=== PATIENT | female | born 1930 | race Caucasian/White ===

== ENCOUNTER 2019-07-05 17:05 | Observation (INO) | payer MEDICARE ==
[2019-07-05 18:00] LABS: ABS Monocytes 0.2 10^3/ul (0-0.8); ABS Neutrophils 4.2 10^3/ul (1.5-7.7); Eosinophil % 0.6 %; Hematocrit 47 % (35-47); Hemoglobin 15.7 g/dL (12.0-16.0); Lymphocyte % 18.3 %; Mean Corpuscular HGB Conc 34 g/dL (31-36); Mean Corpuscular Hemoglobin 29 pg (27-31); Mean Corpuscular Volume 87 fL (80-97); Mean Platelet Volume 8.2 fL (7.4-10.4); Platelet Count 227 10^3/uL (150-450); Red Blood Count 5.35 10^6 /uL (3.70-4.87); Red Cell Distribution Width 15 % (10-15); White Blood Count 5.5 10^3/uL (3.5-10.8)
[2019-07-05 18:20] LABS: Albumin 4.5 g/dL (3.2-5.2); Albumin/Globulin Ratio 1.7 (1-3); BUN/Creatinine Ratio 37.3 (8-20); Calcium 9.3 mg/dL (8.6-10.3); EGFR African American 116.7 (>60); EGFR Non-African American 96.4 (>60); Globulin 2.6 g/dL (2-4); Potassium 3.4 mmol/L (3.5-5.0); Total Bilirubin 0.6 mg/dL (0.2-1.0); Total Protein 7.1 g/dL (6.4-8.9)
--- NOTE | 2019-07-05 18:20 | ED ---
Dizziness - HPI Summary HPI Summary: The patient is an 89 y/o F arriving via ambulance to [facility] with cc of dizziness accompanied by mild nausea and vomiting today. She reports that she has been experiencing a fuzzy-head sensation with trouble finding thoughts throughout the day, and she has felt some nausea with scant vomiting. She additionally c/o SOB recently. She denies any headaches, room-spinning dizziness, abd pain, or diarrhea. Symptoms rated 0/10 in severity. No recent falls. No chronic O2 use. PMHx: HTN, breast cancer with left mastectomy. Nonsmoker, no EtOH, no substance use. Medications reviewed. Allergies noted. Home Medications Medication Instructions Recorded Confirmed Type Lisinopril/HCTZ 20/12.5(NF) 1 tab PO DAILY 07/05/19 07/05/19 History [Zestoretic 29/04.5(NF)] Metoprolol Tartrate TAB* 25 mg PO BID 07/05/19 07/05/19 History [Lopressor TAB*] Metoprolol Tartrate TAB* 50 mg PO BID 07/05/19 07/05/19 History [Lopressor TAB*] - History Of Current Complaint Chief Complaint: EDHypertension Stated Complaint: NAUSEA , VOMITING Time Seen by Provider: 07/05/19 17:20 Hx Obtained From: Patient Onset/Duration: Still Present, Gradually Timing: Intermittent Episode Lasting Severity Initially: Mild Severity Currently: Moderate Character: Lightheaded - fuzzy feeling Aggravating Factor(s): Nothing Alleviating Factor(s): Nothing Associated Signs And Symptoms: Positive: Nausea, Vomiting, SOB, Other: - difficulty finding thoughts; Negative: headache. Negative: Diarrhea - Allergies/Home Medications Allergies/Adverse Reactions: Allergies Allergy/AdvReac Type Severity Reaction Status Date / Time No Known Allergies Allergy Verified 07/05/19 17:10 Home Medications: Home Medications Apixaban* [Eliquis*] 5 mg PO BID 07/05/19 [History Confirmed 07/05/19] Lisinopril/HCTZ 20/12.5(NF) [Zestoretic 20/12.5(NF)] 1 tab PO DAILY 07/05/19 [ History Confirmed 07/05/19] Metoprolol Tartrate TAB* [Lopressor TAB*] 25 mg PO BID 07/05/19 [History Confirmed 07/05/19] Metoprolol Tartrate TAB* [Lopressor TAB*] 50 mg PO BID 07/05/19 [History Confirmed 07/05/19] PMH/Surg Hx/FS Hx/Imm Hx Endocrine/Hematology History: Denies: Hx Diabetes Cardiovascular History: Reports: Hx Hypertension Musculoskeletal History: Denies: Hx Osteoporosis - Cancer History Hx Chemotherapy: No Hx Radiation Therapy: No - Surgical History Surgical History: Yes Surgery Procedure, Year, and Place: left mastectomy 2011 Infectious Disease History: No Infectious Disease History: Denies: Traveled Outside the [place] in Last 30 Days - Family History Known Family History: Positive: Hypertension - Social History Alcohol Use: None Hx Substance Use: No Substance Use Type: Reports: None Hx Tobacco Use: No Smoking Status (MU): Never Smoked Tobacco Review of Systems Positive: Shortness Of Breath Positive: Vomiting, Nausea. Negative: Abdominal Pain, Diarrhea Neurological/Mental Status: Other - "fuzzy" dizziness, difficulty finding thoughts Negative: Headache All Other Systems Reviewed And Are Negative: Yes Physical Exam - Summary Physical Exam Summary: Constitutional: Well-developed, Well-nourished, Alert. (-) Distressed Skin: Warm, Dry HENT: Normocephalic; Atraumatic Eyes: Conjunctiva normal Neck: Musculoskeletal ROM normal neck. (-) JVD, (-) Stridor, (-) Nuchal rigidity Cardio: irregularly irregular, Heart sounds normal; Intact distal pulses; Radial pulses are 2+ and symmetric. (-) Murmur Pulmonary/Chest wall: Effort normal. (-) Respiratory distress, (-) Wheezes, (-) Rales Abd: Soft, (-) tenderness, (-) Distension, (-) Guarding, (-) Rebound Musculoskeletal: (-) Edema Lymph: (-) Cervical adenopathy Neuro: Alert, Oriented x3, CN 2-12 grossly intact. No dysmetria. No nystagmus. Strength 5/5 UE and LE. GCS 15, gait deferred Psych: Mood and affect Normal Triage Information Reviewed: Yes Vital Signs On Initial Exam: Initial Vitals Temp Pulse Resp BP Pulse Ox 97.9 F 83 16 198/113 93 07/05/19 17:08 07/05/19 17:08 07/05/19 17:08 07/05/19 17:08 07/05/19 17:08 Vital Signs Reviewed: Yes - Karine Coma Scale Best Eye Response: 4 - Spontaneous Best Motor Response: 6 - Obeys Commands Best Verbal Response: 5 - Oriented Coma Scale Total: 15 Procedures - Sedation Patient Received Moderate/Deep Sedation with Procedure: No Diagnostics - Vital Signs Vital Signs Temp Pulse Resp BP Pulse Ox 07/05/19 17:08 97.9 F 83 16 198/113 93 - Laboratory Lab Results: Lab Results 07/05/19 Range/Units 17:42 WBC 5.5 (3.5-10.8) 10^3/uL RBC 5.35 H (3.70-4.87) 10^6 /uL Hgb 15.7 (12.0-16.0) g/dL Hct 47 (35-47) % MCV 87 (80-97) fL MCH 29 (27-31) pg MCHC 34 (31-36) g/dL RDW 15 (10-15) % Plt Count 227 (150-450) 10^3/uL MPV 8.2 (7.4-10.4) fL Neut % (Auto) 76.6 % Lymph % (Auto) 18.3 % [place] % (Auto) 3.8 % Eos % (Auto) 0.6 % Baso % (Auto) 0.7 % Absolute Neuts (auto) 4.2 (1.5-7.7) 10^3/ul Absolute Lymphs (auto) 1.0 (1.0-4.8) 10^3/ul Absolute Monos (auto) 0.2 (0-0.8) 10^3/ul Absolute Eos (auto) 0.0 (0-0.6) 10^3/ul Absolute Basos (auto) 0.0 (0-0.2) 10^3/ul Absolute Nucleated RBC 0.0 10^3/ul Nucleated RBC % 0.0 Result Diagrams: 07/05/19 17:42 07/05/19 17:42 Lab Statement: Any lab studies that have been ordered have been reviewed, and results considered in the medical decision making process. - Radiology CXR Radiology Interpretation Completed By: Radiologist Summary of Radiographic Findings: Impression: No acute cardiopulmonary disease. ED physician has reviewed this report. - CT Brain CT CT Interpretation Completed By: Radiologist Summary of CT Findings: Impression: No acute intracranial abnormality. ED physician has reviewed this report. - EKG 1726 Cardiac Rate: NL - 96 BPM EKG Rhythm: Atrial Fibrillation Summary of EKG Findings: An EKG at 1726 reveals atrial fibrillation at rate of 96 BPM, T wave inversions in lead III, aVF. No STEMI. ED physician has reviewed and interpreted this EKG. Re-Evaluation - Re-Evaluation First Eval Re-Evaluation Time: 19:25 Comment: Patient's BP still elevated, Labetalol ordered Second Eval Re-Evaluation Time: 21:00 Change: Improved Comment: Patient feeling well, states she is "foggy" Fourth Eval Re-Evaluation Time: 21:35 Change: Worse Comment: Patient unsteady with ambulation, feeling nauseous, plan for admission Dizzy Course/Dx - Course Course Of Treatment: 89 y/o F p/w dizziness, HTN and nausea/vomiting. - abd soft, neuro exam no nystagmus or dysmetria. - Dizziness ddx: Differential diagnosis includes: Cardiac causes - will check EKG, troponin. Electrolyte disturbances - will check CMP. Anemia - will check CBC. Posterior stroke/tia - CT head negative, intermittent symptoms. Vertigo: differential includes Menniere's - no tinnitis, not lasting hours, BPPV - not positional or lasting minutes, labyrinthitis - no h/o infectious symptoms, no tinnitus. - CT head obtained with no acute neurologic process. Labs unremarkable including troponin. EKG A. fib (has hx). patient felt improved, was given food which she tolerated. However upon ambulation patient began to feel worse, had unsteady gait and nausea. Plan for admission for further workup including possible neuro consult. - Diagnoses Provider Diagnoses: Nausea & vomiting, Gait abnormality, Hypertension - Provider Notifications Discussed Care Of Patient With: Barbara Gould - hospitalist Time Discussed With Above Provider: 21:40 Instructed by Provider To: Other - I discussed the patients case with Dr. Gould, who accepts the patient for admission. Discharge ED - Sign-Out/Discharge Documenting (check all that apply): Patient Departure - Patient accepted for admission by Dr. Gould. - Discharge Plan Condition: Stable Disposition: ADMITTED TO [facility] - Billing Disposition and Condition Condition: STABLE Disposition: Admitted to [facility] - Attestation Statements Document Initiated by Scribe: Yes Documenting Scribe: Sadaf Castellanos Provider For Whom Scribe is Documenting (Include Credential): Dr. Kellie Esquivel MD Scribe Attestation: I, Sadaf Castellanos, scribed for Dr. Kellie Esquivel MD on 07/07/19 at 1041. Scribe Documentation Reviewed: Yes Provider Attestation: The documentation as recorded by the scribe, Sadaf Castellanos accurately reflects the service I personally performed and the decisions made by me, Dr. Kellie Esquivel MD Status of Scribe Document: Viewed
[2019-07-05] MEDS ORDERED: Labetalol IV* 5 MG/ML 20 ML VIAL IV PUSH ONE (19:26)
[2019-07-05] MEDS ORDERED: Ondansetron INJ* 2 MG/ML VIAL IV ONE (19:26)
[2019-07-05 21:18] LABS: Urine Appearance Turbid; Urine Bilirubin Negative (Negative); Urine Blood Negative (Negative); Urine Color Yellow; Urine Glucose 1+(50 mg/dL) (Negative); Urine Ketones Negative (Negative); Urine Nitrite Negative (Negative); Urine Protein 1+(30 mg/dL) (Negative); Urine Specific Gravity 1.012 (1.010-1.030); Urine Urobilinogen Negative (Negative)
[2019-07-05 21:30] LABS: Urine Bacteria Absent (Absent); Urine Red Blood Cell Absent (Absent); Urine White Blood Cell Absent (Absent)
[2019-07-05] MEDS ORDERED: Metoprolol Tartrate TAB* 50 mg PO ONE (22:13)
[2019-07-05] MEDS ORDERED: Apixaban* 5 MG TAB PO ONE (22:13)
[2019-07-05] MEDS ORDERED: hydrALAZINE IV* 20 MG/ML VIAL IV SLOW PU PRN (22:23)
[2019-07-05] MEDS ORDERED: Meclizine TAB* 12.5 MG PO ONE (22:32)
--- NOTE | 2019-07-06 00:20 | HP ---
CC: Dr. Stephany Bailey; Dr. Price HISTORY AND PHYSICAL: DATE OF ADMISSION: 07/05/19 TIME OF EVALUATION: 10 p.m. PRIMARY CARE PROVIDER: Dr. Stephany Bailey. ANGER CONTROL COUNSELOR: Dr. Price. CHIEF COMPLAINT: "I am dizzy." HISTORY OF PRESENT ILLNESS: Ms. Hui is an 89-year-old female with a past medical history of hyperte nsion, atrial fibrillation, breast CA, osteoporosis, hyperlipidemia, who presents to the emergency ro om with complaints of dizziness. The patient states that she woke up in the middle of the night to go to the bathroom and she felt jesus t it was difficult to walk. She had to hold on to the antonio to get to the bathroom and this was asso ciated with nausea and vomiting. She states that she was feeling well when she went to bed and woke up in the middle of the night feeling that way. She denies headache, chest pain, palpitations, diarrhea, sick contact, recent respiratory or GI infec tion. She also complains of a "fuzzy feeling" in her "brain." She attributes this to her age. She cannot really pinpoint what that she means by fuzzy brain, but in conversation with her it sounds like she s ometimes has difficulty explaining her thoughts. In the emergency room, the patient was noted to have an elevated blood pressure of 198/113 initially. She received IV labetalol and her blood pressure did trend down. The original plan was for the pat ient to be discharged as she was feeling improved. She was able to eat but when ambulation was attem pted, she began to feel worse, had ataxic gait and nausea, so at that point the hospitalist service w as consulted for evaluation. PAST MEDICAL HISTORY: 1. Hypertension. 2. Atrial fibrillation. 3. History of breast cancer, status post left mastectomy in 2009. 4. Hepatitis C in the s. The patient's viral load is reported as negative. 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 5. Osteoporosis. The patient was on Boniva and does not want to take anymore bisphosphonate. 6. Hyperlipidemia. The patient is not on a statin due to myalgia. 7. Retinal vascular disease. 8. Hearing loss. 9. Atrial fibrillation. 10. Status post cataract removal. MEDICATION LIST: 1. Eliquis 5 mg p.o. b.i.d. 2. Lisinopril 20/12.5 one tablet p.o. daily. 3. Metoprolol tartrate 75 mg p.o. b.i.d. ALLERGIES: No known drug allergies. FAMILY HISTORY: Parents had a history of hypertension. SOCIAL HISTORY: There is no history of tobacco, alcohol, or drug use. The patient is a vegetarian. She is a retired nurse. Surrogate decision maker is her daughter Neva Wayne, phone number is [phone]. REVIEW OF SYSTEMS: A 14-point review of systems was performed and all the pertinent negatives and po sitive findings are in the HPI. PHYSICAL EXAMINATION GENERAL: The patient is a pleasant elderly lady, sitting up in the ED stretcher, in no acute distres s. VITAL SIGNS: Temperature 97.9, heart rate is 94, respiratory rate is 16, oxygen saturation is 95% on room air, blood pressure is 146/94. HEENT: Pupils are equal. There is nystagmus when the patient looks to the left. Moist mucous membra rahel. CHEST: Breath sounds present bilaterally with no added sounds. CVS: Normal S1, S2. Irregularly irregular. ABDOMEN: Soft, nontender, nondistended. Bowel sounds present. EXTREMITIES: No edema. NEUROLOGIC: The patient is alert and oriented x3. Power is 5/5 in all 4 extremities. Qcnpqs-ax-gyh e and fppe-kh-zfmv are normal. Sensation is intact. I did not attempt to walk her again as she tell s me that she was severely symptomatic when this was attempted before and she is finally feeling a li ttle better now, so she rather not attempt to walk right now. Her face is symmetric. Her speech is clear and although she complains of "a fuzzy brain," the content of her conversation is also appropri ate. DIAGNOSTIC STUDIES/LAB DATA: The patient had a CBC that showed WBC of 5.5, hemoglobin of 15.7, viviana tocrit of 47, platelets of 227 with 76% neutrophils. Chemistry showed a sodium of 132, potassium of 3 .4, chloride of 96, bicarb 27, BUN of 22, creatinine of 0.59, glucose of 154, calcium is 9.3. LFTs a re normal. Troponin is 0. Urinalysis showed 1+ protein, 1+ glucose. EKG done 07/05/19 at 5:26 p.m. shows atrial fibrillation at 96 beats per minute with no acute ischemi c changes. There is no prior EKG to compare. CT of the brain without contrast showed no acute intracranial abnormality. Chest x-ray showed no acute cardiopulmonary disease. ASSESSMENT AND PLAN: Ms. Hui is an 89-year-old female with a past medical history of hypertension, atrial fibrillation, history of breast cancer, status post left mastectomy, who presented to the [facility] room with complaints of dizziness. 1. Dizziness. I suspect this is probably peripheral in nature considering her history and physical examination. I suspect this may be benign positional paroxysmal vertigo as her symptoms seem to be p ositional in nature. She does not have any recent history of infection to suggest labyrinthitis. Wi th her history of atrial fibrillation and ataxia, there is concern for possible cerebrovascular accid ent. The patient will be admitted to telemetry floor for observation. She will be monitored with ne uro checks, and we will check an MRI of the brain without contrast. In the meantime, she will receiv e symptomatic treatment with meclizine diazepam, and we will continue to monitor. We will check a fa sting lipid profile as well as A1c. The patient is already on full anticoagulation with Eliquis, I d o not think adding antiplatelet drugs is indicated at this time as I suspect her symptoms are probabl y peripheral in nature and adding dual antiplatelet therapy at this point probably just increases her risk of bleeding. I would rather wait for her MRI result, and depending on her response to treatmen t and MRI result, I will then recommend a neurology consultation. 2. Uncontrolled hypertension. The patient missed her morning BP dose, so I believe that is the reas on why her blood pressure is not controlled. She received labetalol IV with good response so far, an d I will give her her metoprolol p.o. and continue to monitor. At this point, there is no indication for a drip as her blood pressure seems to be responding well. 3. DVT prophylaxis: The patient has a score of 5 on DVT Prophylaxis Assessment Guide, and she will have SCDs and will be continued on apixaban. 4. Code status: As per her PCP's note, the patient wanted to be a do not resuscitate, but we talked about it again, and at this point, she wishes to be a full code. TIME SPENT: Approximately 65 minutes was spent on patient interview, medical records review, physica l examination to complete this admission, more than half this time was spent [id number] with the mary leal and coordination of care. [id number]/[facility] #: [id number]
[2019-07-06] MEDS: Diazepam TAB(*) 5 MG PO SCH ×3 (00:46→14:48)
[2019-07-06] MEDS: KCL 10 MEQ/50 ML IVPREMIX* 10 MEQ/50 ML BAG IV SCH ×3 (00:47→03:37)
[2019-07-06] MEDS ORDERED: Acetaminophen TAB* 325 MG PO PRN (02:35)
[2019-07-06] MEDS: Meclizine TAB* 12.5 MG PO SCH ×2 (05:37→14:49)
[2019-07-06 07:03] LABS: HDL Cholesterol 51.9 mg/dL
[2019-07-06] MEDS ORDERED: Lisinopril TAB* 10 MG PO SCH (09:00)
[2019-07-06] MEDS ORDERED: Metoprolol Tartrate TAB* 25 MG PO SCH (09:00)
[2019-07-06] MEDS ORDERED: Hydrochlorothiazide TAB* 25 MG PO SCH (09:00)
[2019-07-06] MEDS ORDERED: Apixaban* 5 MG TAB PO SCH (09:00)
[2019-07-06] MEDS ORDERED: Metoprolol Tartrate TAB* 50 mg PO SCH (09:00)
[2019-07-06 13:49] VITALS: BP 125/74
--- NOTE | 2019-07-06 17:38 | DS ---
Resident Discharge Summary Discharge Summary: Date of Admission: 07/05/19 Date of Discharge: 07/06/19 Admitting MD: Barbara Gould MD Attending MD: Joseph Bailey MD Primary Care Physician: Stephany Bailey MD Home Medications Medication Instructions Recorded Confirmed Type Apixaban* [Eliquis*] 5 mg PO BID 07/05/19 07/05/19 History Lisinopril/HCTZ 29/04.5(NF) 1 tab PO DAILY 07/05/19 07/05/19 History [Zestoretic (NF)] Metoprolol Tartrate TAB* 25 mg PO BID 07/05/19 07/05/19 History [Lopressor TAB*] Metoprolol Tartrate TAB* 50 mg PO BID 07/05/19 07/05/19 History [Lopressor TAB*] Disposition: Stable to Home Condition: Stable Primary Diagnosis: 1. Hypertensive emergency 2. Unsteady gait Secondary Diagnosis: 1. Hypertension 2. Atrial fibrillation 3. Distant history of breast cancer 4. Hepatitis C treated 5. Osteoprosis Diagnostic Imaging: MRI: No acute intracranial abnormality. Moderate chronic small vessel ischemic disease, moderate cerebral volume loss. CXR: no acute cardiopulmonary illness. Brain CT: no acute abnormality. Pertinent Laboratory Results: CBC: TW 5.5, Hb 15.7, plt 227 BMP: Na 132, K 3.4, Cl 96, creatinine 0.59 HbA1c 6.0 Lipids: LDL 113 Hospital Course: Mayra Hui is a 89 years old female with history of hypertension, hyperlipidemia , osteoprosis, distant breast cancer, presented to [facility] with acute onset of "fuzzy feelings in her brain", and unsteady gait. She was found to have high BP with systolic BP up to 202mmhg on admission, and her blood pressure controlled after iv labetalol and hydralazine. 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 She was also worked up for possible stroke, including CT brain, MRI brain which all back negative. Neurologist Dr. Bowman was consulted on this case who also think her symptoms probably more related to her hypertensive episodes. Patient was assessed by physical therapy inpatient, who advised home PT, this was set up before discharge. On the day of discharge, patient was feeling back to normal largely. 12-point physical examination is all normal other than some unsteady gait on ambulation. There is no medication changes. But it will be beneficial to monitor her BP closely outpatient, and set up some home help with her medication administration. Follow Up Instructions: She needs to follow up with her primary care within 1 week to recheck her symptoms and monitor her BP. Home PT was set up for her. In case of an emergency or after clinic hours, please go to your nearest Emergency Department. You may also call the [facility] foil operator at . Attestation Documenting Resident: Minerva Hollingsworth Supervising Physician: Joseph Bailey Attending/Supervising Physician Comment: Agree with discharge as outlined in Dr. Hollingsworth's note from today unless indicated. Vague symptoms alternatively described as dizziness, unable to control her actions and "head fullness" MRI negative Back to baseline In setting of SBP>200. Suspect BP largely contributing to symptoms Attestation: This service has been performed in part by a resident under the direction of a teaching physician.I, Joseph Bailey, performed the service, or was physically present during the critical, or chacon portions of the service, furnished by the resident. I participated in the management of the patient.
--- NOTE | 2019-07-06 19:32 | CONS ---
NEUROLOGY CONSULTATION: DATE OF CONSULT: 07/06/19 LOCATION: She is an inpatient in room 439. REFERRING PROVIDER: Dr. Irwin. PRIMARY CARE PROVIDER: Dr. Bailey. SENIOR MARKETING SPECIALIST: Dr. Price. CHIEF COMPLAINT: Dizziness. HISTORY OF PRESENT ILLNESS: Mayra Hui is an 89-year-old woman who was admitted yesterday with sense of dizziness. She is not a very good historian and does not have a good recollection of the details. According to initial emergency room notes, she presented with dizziness, nausea, and vomiting. She does not remember exactly when it started, but she knows that she came to the emergency room some time yesterday and felt dizzy. She felt unsteady on her feet. She does not remember if she woke up with it or if it was started after she went up with a period of feeling normal. Her blood pressure was extremely elevated in the emergency room at 198/113 and she was given labetalol. She was given some fluids and her blood pressure came down. When they tried to get her up, she was not able to ambulate and so she was admitted. Currently, she denies dizziness. She says she has been up and eating and has no nausea. She says she has been to the bathroom and is using a walker. She says at home she has a cane, but she does not use it much. She has chronic atrial fibrillation, on Eliquis. When asked if she forgets to take medications, she says it is not uncommon for her to forget to take her evening doses of medications. Also, she cannot tell me what medications she is on, although she does admit to being on Eliquis. She thinks she is on a blood pressure medicine, but she does not know the name of it. She forgot if she took it yesterday. PAST MEDICAL HISTORY: Notable for atrial fibrillation; hypertension; retinal vascular disease; hearing loss; hyperlipidemia, not treated due to statin- induced myalgias; hepatitis C in the ; osteoporosis. MEDICATIONS: Medications at home were listed as: 1. Eliquis 5 mg p.o. b.i.d. 2. Lisinopril 1 tablet p.o. daily. 3. Metoprolol 75 mg p.o. b.i.d. ALLERGIES: She is listed as not having any allergies. SOCIAL HISTORY: She does not smoke and she does not drink alcohol. She is a vegetarian. She is a retired nurse. REVIEW OF SYSTEMS: Largely from the chart. The patient currently denies headache or dizziness. She denies nausea. She denies headache. She denies double vision. She denies any numbness on her face or limbs. PHYSICAL EXAM: Temperature is 97.8, blood pressure this afternoon is running about 120/70 to 88. Heart rate is in the 70s and irregularly irregular. Respiratory rate is 17 and oxygen saturation is 98% on room air. Heart tones are irregular, but I do not hear any murmurs. Head is atraumatic. Oral mucosa is moist and atraumatic. There are no cervical bruits. Neurological Exam: Pupils react equal from 3 to 2 mm. Fundi reveal sharp discs bilaterally. Eye movements are normal. Specifically, there is no nystagmus. Visual read are full to confrontation. Facial musculature and facial sensation to light touch are intact and symmetric. Palate and tongue are normal and there is no dysarthria. Motor exam reveals normal strength and tone for age in the upper and lower extremities. There is no drift of any limb. Sensory exam is notable for symmetrical light touch in the legs, hands, and face. Pin discrimination is symmetrical in the face and hands as well. Aplmri-zx-yibn maneuver is normal bilaterally. Finger taps are normal in the hands. I sat her up and stood her up and she did not feel dizzy or lightheaded. She was able to maintain her stance with good stability. She is alert and oriented to person and place. She has a poor recollection of time. Memory seems impaired. Language is fluent. DIAGNOSTIC STUDIES/LAB DATA: Includes an MRI scan of the brain from earlier today interpreted as showing decreased flow void in the V4 left vertebral artery. Moderate chronic small vessel ischemic disease. I reviewed the images and I agree. Other laboratory data is notable for normal CBC, chemistry profile notable for a sodium of 132 and a glucose yesterday of 154. Hemoglobin A1c this morning is 6.0%. Cholesterol this morning fasting is 182, LDL 113. IMPRESSION AND PLAN: Impression is that of some nonspecific dizziness, hypertension, and nausea. She may have forgotten to take her blood pressure medicines. There is no evidence on MR imaging or clinical exam that she has had a cerebrovascular event, although I could not rule out a transient ischemic attack. I think the main thing is just to try to set up to make sure that she gets her medications on a regular basis. She may need some supervision in terms of visiting nurse service or family help if it is available. Switching medications to once a day dosing may be beneficial as well given her history of forgetting the evening or afternoon doses at times. I do not think she needs an antiplatelet agent. I do not think she needs additional neuroimaging. [id number]/[facility] #: [id number] ROSIE
[2019-07-06] MEDS ORDERED: Apixaban* 5 MG TAB PO ONE (22:13)
== END 2019-07-06 17:40 | disposition home or self-care (01) ==
LOC: ED 17:05 → MEDTELE 22:02
PROVIDERS: ADMIT Internal Medicine; ATTEND Internal Medicine
DX: I16.1 Hypertensive emergency (principal); R26.81 Unsteadiness on feet; I48.91 Unspecified atrial fibrillation; Z85.3 Personal history of malignant neoplasm of breast; B19.20 Unspecified viral hepatitis C without hepatic coma; M81.0 Age-related osteoporosis without current pathological fracture; R06.02 Shortness of breath; R42 Dizziness and giddiness; H91.90 Unspecified hearing loss, unspecified ear; Z79.899 Other long term (current) drug therapy; Z79.01 Long term (current) use of anticoagulants; R94.31 Abnormal electrocardiogram [ECG] [EKG]
CPT/HCPCS: 36415; 70450; 70551; 71046; 80053; 80061; 81003; 81015; 83036; 84484; 85025; 93005; 96365; 96375; 99285; A9270-GY; G0378; J2405; J3480